=== PATIENT | male | born 1970 | race Caucasian/White ===

== ENCOUNTER 2024-12-08 14:52 | Emergency (ER) | payer OTHER, SELFPAY ==
[2024-12-08 14:56] VITALS: BP 119/85
[2024-12-08 15:18] LABS: Hematocrit 38.3 % (39.0-52.0); Hemoglobin 13.9 g/dL (13.0-18.0); Mean Corp Hgb Conc. 36.3 g/dL (33.0-37.0); Mean Corpuscular Volume 87.8 fL (80.0-94.0); Nucleated Red Blood Cells % 0 % (-); Platelet Count 341 10^3/uL (130-400); Red Cell Dist. Width 11.9 % (11.5-14.5)
[2024-12-08 15:40] LABS: AST (SGOT) 26 U/L (17-59); Albumin 4.5 g/dl (3.5-5.0); Alkaline Phosphatase 67 U/L (38-126); Blood Urea Nitrogen 13 mg/dl (9-20); Calcium 9.9 mg/dl (8.4-10.2); Carbon Dioxide 20 mmol/L (22-30); Chloride 102 mmol/L (98-107); Glucose 184 mg/dl (70-99); Potassium 4.2 mmol/L (3.5-5.1); Sodium 133 mmol/L (135-145); Total Protein 7.1 g/dl (6.3-8.2); eGFR > 60.00
[2024-12-08 15:49] LABS: ALT (SGPT) 25 U/L (0-50)
[2024-12-08 17:18] LABS: Lipase 149 U/L (23-300)
[2024-12-08] MEDS: NSS 1000 IV (17:37)
[2024-12-08 17:38] VITALS: BP 136/82
[2024-12-08 18:12] LABS: COVID-19 Antigen Negative (Negative)
--- NOTE | 2024-12-08 18:50 | ED.GENMED ---
History of Present Illness
General
Chief Complaint: Abdominal Symptoms
Source: patient
Exam Limitations: none
Time Seen by Provider: 12/08/24 16:07
Nursing documentation reviewed up to this point in time: agreed with
History of Present Illness
History of Present Illness:
see MDM
Phy Exam
Physical Exam
Physical Exam:
GENERAL: Alert , in no apparent distress
EYE: pupils equal and reactive
NECK: Supple
ENT: o/p clr, mildly dry mouth
CARDIAC: Regular rate and rhythm .
LUNGS: Clear breath sounds bilaterally, no acute respiratory distress, no wheezes/rales/rhonchi
ABDOMEN: Soft, no Hollingsworth sign, no McBurney's point tenderness without focal tenderness, no r/g, no cvat, normal bowel sounds
NEUROLOGICAL: Alert and oriented, no focal neuro deficits
SKIN: Warm and dry, skin intact.
MUSCULOSKELETAL: No edema, well perfused. neg jessica's sign
PSYCH: Normal and appropriate interaction.
Course
Orders/Labs/Results
Orders:
Orders
12/08/24 15:00
EKG [Electrocardiogram (*1)] Urgent
Reason for Study: Tachycardia
EKG- Treatment ONCE
12/08/24 15:12
Complete Blood Count/With Diff Urgent
Comprehensive Metabolic Panel Urgent
Lipase Urgent
Comment: ADD ON
12/08/24 16:45
Add On- LAB Urgent
Tests Added?: lipase
12/08/24 16:51
0.9% Sodium Chloride 1000 ml [Nss] 1,000 ml IV BOLUS
12/08/24 17:38
COVID-19 Antigen Urgent
Source: Nasal Swab
Influenza A+B Rapid Molecular Urgent
LAI Source: Nasal Swab
Specimen Description:
Abnormal Lab Results
12/08/24
15:12
WBC 13.9 H 10^3/uL
(4.8-10.8)
RBC 4.36 L 10^6/uL
(4.70-6.10)
Hct 38.3 L %
(39.0-52.0)
MCH 31.9 H pg
(27.0-31.0)
Absolute Neuts (auto) 11.7 H 10^3/uL
(1.4-6.5)
Absolute Monos (auto) 0.7 H 10^3/uL
(0.1-0.6)
Neutrophils % 84.0 H %
(42.2-75.2)
Lymphocytes % 9.8 L %
(20.5-51.1)
Sodium 133 L mmol/L
(135-145)
Carbon Dioxide 20 L mmol/L
(22-30)
Glucose 184 H mg/dl
(70-99)
12/08/24 15:12
12/08/24 15:12
Vital Signs
Initial and Last Documented VS:
Initial Vital Signs
Temp Pulse Resp BP Pulse Ox
36.5 C 100 22 119/85 98
12/08/24 14:56 12/08/24 14:56 12/08/24 14:56 12/08/24 14:56 12/08/24 14:56
Last Documented Vital Signs
Temp Pulse Resp BP Pulse Ox
36.5 C 82 16 136/82 99
12/08/24 14:56 12/08/24 17:38 12/08/24 17:38 12/08/24 17:38 12/08/24 18:52
MDM/Problems Addressed
Differential Diagnosis Includes:
see MDSM
MDM/Problems Addressed:
Note:
CHIEF COMPLAINT(S)
Nausea and vomiting.
HISTORY OF PRESENT ILLNESS
The patient is a 54-year-old male with a prior medical history of depression, managed with fluoxetine, who presented with acute onset nausea and vomiting today. He reports waking up, having breakfast (tomatoes and a piece of pizza), and going to
play golf when he began feeling nauseous and subsequently vomited multiple times during the car ride home from the golf course. The vomiting episodes were without hematemesis or diarrhea, and his bowel movement in the morning was normal. He denies
any fever, but mentions experiencing chills.
he had lightheadedness while he was vomiting, got sweaty; and was pretty intensely throwing up
The patient has a history of consuming alcohol on weekends, and he did have some alcohol yesterdy but not much. The patient denies smoking, drug use, or recent changes in medication.
he has no h/o GERD.
pt is actually feeling significantly better
hasn't vomited since being in [place]
no abd pain and no vomiting or nauesa now
PAST MEDICAL AND SURGICAL HISTORY
Depression, managed with fluoxetine.
CHRONIC MEDICAL CONDITIONS SIGNIFICANTLY AFFECTING CARE
Depression.
MEDICATIONS
- Fluoxetine
PLAN
1. Administer IV fluids to address dehydration from vomiting and provide volume replenishment.
2. Perform a lipase test to evaluate for possible pancreatitis.
3. Monitor response to IV fluids and assess if anti-emetic medications are required based on the persistence of nausea.
4. Consider testing for influenza and COVID-19 despite negative initial evaluations, to rule out viral infection.
5. If the patients condition improves, with no further nausea or vomiting, discharge home with follow-up care instructions.
DIFFERENTIAL DIAGNOSIS
The Differential Diagnosis includes, in no particular order and is not limited to:
1. Viral gastroenteritis
2. Pancreatitis
3. Gastritis
4. Gastroesophageal reflux disease (GERD)
5. Acute cholecystitis
6. Food poisoning
7. Vestibular neuritis
8. Migraine-associated vertigo
9. Alcohol withdrawal
10. Upper respiratory infection-associated nausea
CARE-UPDATE
12/08/24 - 18:39
- Patient is drinking well and managing hydration orally; intravenous fluids can be discontinued.
- Blood glucose levels high, potentially due to fasting variation or recent ingestion; not of immediate concern. A1C is slightly elevated but stable, currently under observation by the primary care physician.
- Viral gastroenteritis suspected, likely a short-lived viral infection or reaction to a recent meal. Flu and COVID-19 tests returned negative.
- Neurological assessment by a neurologist was mentioned but no specific findings were discussed.
- Prescribed Zofran (ondansetron) for nausea, with instructions for use if symptoms persist or worsen after discharge.
*Pulse Oximetry
SaO2: 99
Oxygen Mode of Delivery: Room air
Patient hypoxic: no (99)
*Critical Care Note
Total Time (30-74mins, 75-104mins- exclusive of procedures): Not Applicable
ED Attending Note
-
Portions of this chart may have been created with voice recognition software.� Occasional wrong word or��sound alike� substitutions may have occurred due to the inherent limitations of voice recognition software.
Discharge Plan
Departure
Patient Disposition: Home (Routine Discharge)
Date of Disposition: 12/08/24
Time of Disposition: 19:15
Patient with high blood pressure during this ER visit?: No
Condition: Fair
Covid-19: Not Applicable
Discharge Problem:
Vomiting
Instructions: Nausea and Vomiting, Adult (DC)
Prescriptions:
New
ondansetron 4 mg tablet,disintegrating
4 mg PO Q8H PRN (Reason: nausea and vomiting) 1 Days Qty: 2 0RF
Referrals:
Luke Ron MD [Family Provider, Family Practice] - Follow up in 2-3 days
Activity Restrictions/Additional Instructions:
Were not sure the cause of your vomiting, could be viral. He seemed to improve spontaneously on your own but were given some fluids. He did have a slightly elevated blood sugar but not concerning for diabetes. Your white count was mildly elevated
which could be due to a virus or just the stress of vomiting
since your sypmtoms resolved, we did not do any imaging
if your vomiting returns or you get fever, worse vomiting, etc you should return tot he ER
otherwise see your doctor
it's also possible that you could have some gastric inflammation from what you ate today (alcohol and NSAIDS and spicy foods/acidic foods should be avoided for a few days)
bland diet and increase as tolerated
return for problems.
Interventions
Interventions:
*Risk Screen - Suicide Last Done: 12/08/24 14:56
*General Assessment Last Done: 12/08/24 14:56
*Neglect/Abuse Screening Last Done: 12/08/24 14:56
*ED- Fall Risk Assessment Last Done: 12/08/24 14:56
*ED COVID-19 Vaccine History Last Done: 12/08/24 14:56
*ED Influenza Vaccine History Last Done: 12/08/24 14:56
*Nursing Disposition Last Done: 12/08/24 19:38
VC-Ldoddr-Lhogxpffqq Assessment Last Done: 12/08/24 16:43
Discharge Date and Time
Discharge Date/Time: 12/08/24 19:39
Print Language: MACEDONIAN
== END 2024-12-08 19:39 | disposition home or self-care (01) ==
LOC: EMR 14:52
PROVIDERS: Physician Assistant; EMERGENCY PHYSICIAN Emergency Medicine; FAMILY PHYSICIAN Family Medicine
DX: E86.0 Dehydration (principal); R11.2 Nausea with vomiting, unspecified
CPT/HCPCS: 96360; 99284; 80053; 83690; 85025; 87502; 87811; 93005